=== PATIENT | male | born 1985 | race Caucasian/White ===

== ENCOUNTER 2023-09-16 01:40 | Emergency (ER) | payer BC ==
[~2023-09-16] VITALS: Ht 180.3 cm; Wt 70.3 kg
[2023-09-16 02:01] VITALS: BP_SYST 113; PULSE 82; RESP 18; TEMP 98.1; O2SAT 97
[2023-09-16 03:32] LABS: BASOPHILS # (AUTO) 0.1 K/uL (0.0-0.2); EOSINOPHILS # (AUTO) 0.1 K/uL (0.0-0.4); HEMATOCRIT 39.8 % (36-54); HEMOGLOBIN 13.6 g/dL (14.0-18.0); LYMPHOCYTES # (AUTO) 1.3 K/uL (1.0-5.5); LYMPHOCYTES % (AUTO) 19.3 % (20.5-51.5); MEAN CORPUSCULAR HEMOGLOBIN 30 pg (27-31); MEAN CORPUSCULAR HGB CONC 34 % (32-36); MEAN CORPUSCULAR VOLUME 88 fL (79.0-98.0); MONOCYTES # (AUTO) 0.6 K/uL (0.0-1.0); MONOCYTES % (AUTO) 8.6 % (1.7-9.3); NEUTROPHILS # (AUTO) 4.6 K/uL (1.8-7.7); NEUTROPHILS % (AUTO) 70.1 % (40.0-70.0); PLATELET COUNT (AUTO) 252 K/uL (130-430); RED BLOOD CELL COUNT(AUTO) 4.53 MIL/uL (4.2-6.2); RED CELL DISTRIBUTION WIDTH 13.5 % (9.0-15.0); WHITE BLOOD COUNT (AUTO) 6.6 K/uL (4.8-10.8)
[2023-09-16] MEDS: MAG-AL HYDROX/SIMETH 30 ML UDC PO ONE (03:48)
[2023-09-16] MEDS: LIDOCAINE VISCOUS 2%, 15 ML UDC MM ONE (03:48)
[2023-09-16] MEDS: FAMOTIDINE 20 MG TABLET PO ONE (03:49)
[2023-09-16 04:12] LABS: ALBUMIN 4.4 g/dL (3.4-4.8); CALCIUM 9.6 mg/dL (8.4-11.0); CREATININE 1.45 mg/dL (0.55-1.30); POTASSIUM 3.5 mmol/L (3.5-5.1); TOTAL BILIRUBIN 0.7 mg/dL (0.0-1.0); TOTAL PROTEIN, SERUM 7.5 g/dL (6.4-8.3)
[2023-09-16] MEDS ORDERED: LIDVIS100 MM (04:20)
[2023-09-16 04:30] VITALS: BP_SYST 113; PULSE 82; RESP 18; TEMP 98.1; O2SAT 97
== END 2023-09-16 04:30 | disposition home or self-care (01) ==
LOC: SED 01:40
DX: R10.13 Epigastric pain (principal); K21.9 Gastro-esophageal reflux disease without esophagitis; Z79.899 Other long term (current) drug therapy
CPT/HCPCS: 36415; 80053; 83690; 85025; 99284; J2001